=== PATIENT | female | born 1955 | race Caucasian/White ===

== ENCOUNTER 2016-09-03 14:24 | Emergency (ER) | payer OTHER ==
[~2016-09-03] VITALS: Ht 149.9 cm; Wt 72.6 kg
[2016-09-03 15:09] VITALS: BP 132/56
--- NOTE | 2016-09-03 16:35 | NUR ---
Patient ambulated to bed 3 with family. RN evaluating patient at bedside.
--- NOTE | 2016-09-03 16:40 | NUR ---
61F BIB FAMILY C/O LACERATION TO LEFT INDEX FINGER WHILE MOPPING X 1440 TODAY; NO BLEEDING NOTED TO SITE AT THIS TIME; PT C/O THROBBING PAIN TO LEFT INDEX FINGER, NON-RADIATING, 5/10 AT THIS TIME; LEFT CAP REFILL < 2 SECONDS, LEFT RADIAL PULSE PALPABLE, NO LOSS OF SENSATION TO LEFT HAND AT THIS TIME; PT A&OX4, PERRLA, BL LUNG SOUNDS CLEAR, RR EVEN/UNLABORED, SKIN IS WARM/DRY AT THIS TIME; PT DENIES N/V/D AT THIS TIME; STEADY GAIT; PT RESTING IN BED W/ HOB ELEVATED AND IN LOWEST POSITION; POSITIONED FOR COMFORT; ER MD MADE AWARE OF STATUS. WILL CONTINUE TO MONITOR.
--- NOTE | 2016-09-03 16:48 | NUR ---
Dr. Escudero evaluating patient at bedside.
--- NOTE | 2016-09-03 17:29 | NUR ---
Dr. Escudero at bedside for laceration repair.
[2016-09-03] MEDS ORDERED: LIDOCAINE 1% 500 MG/50 ML VIAL INJ SCH (17:30)
[2016-09-03] MEDS ORDERED: LIDOCAINE 1% ED 50 ML ONE (17:36)
[2016-09-03] MEDS ORDERED: NEOMYCIN/POLYMYXIN/BACITRACIN 0.9 GM/1 PKT TP ONE (18:17)
[2016-09-03 18:19] VITALS: BP 146/99
--- NOTE | 2016-09-03 18:19 | NUR ---
Patient discharged with v/s stable. Written and verbal after care instructions given and explained. Patient verbalized understanding. Ambulatory with steady gait. All questions addressed prior to discharge. Advised to follow up with PMD.
== END 2016-09-03 18:19 | disposition home or self-care (01) ==
LOC: MED 14:24
DX: S61.211A Laceration without foreign body of left index finger without damage to nail, initial encounter (principal); J45.909 Unspecified asthma, uncomplicated; E11.9 Type 2 diabetes mellitus without complications; E03.9 Hypothyroidism, unspecified; E78.5 Hyperlipidemia, unspecified; M06.9 Rheumatoid arthritis, unspecified; Z98.890 Other specified postprocedural states; X58.XXXA Exposure to other specified factors, initial encounter; Y93.E5 Activity, floor mopping and cleaning; Y92.89 Other specified places as the place of occurrence of the external cause; Y99.8 Other external cause status
CPT/HCPCS: 12001; 99283; J2001

== ENCOUNTER 2016-09-05 08:15 | Emergency (ER) | payer OTHER ==
[~2016-09-05] VITALS: Ht 149.9 cm; Wt 72.6 kg
[2016-09-05 08:39] VITALS: BP 140/58
--- NOTE | 2016-09-05 09:20 | NUR ---
Patient to OF.
--- NOTE | 2016-09-05 09:30 | NUR ---
Dr. Dye evaluating patient.
--- NOTE | 2016-09-05 09:35 | NUR ---
PATIENT PRESENTS TO ED WITH LEFT INDEX FINGER WOUND RECHECK; LAST SEEN SUNDAY HX; DM, ASTHMA, ARTHRITS, HYPOTHYROID, HYPERCHOLESTROLEMIA RX; INSULIN, JANUMET, LEVOTHYROXINE; DENIES N/V/D; SKIN IS PINK/WARM/DRY; AAOX4 WITH EVEN AND STEADY GAIT; LUNGS CLEAR BL; HR EVEN AND REGULAR; PT DENIES ANY FEVER, CP, SOB, OR COUGH AT THIS TIME; PATIENT STATES PAIN OF 5/10 AT THIS TIME; VSS; PATIENT POSITIONED FOR COMFORT; HOB ELEVATED; BEDRAILS UP X2; BED DOWN. ER MD MADE AWARE OF PT STATUS.
[2016-09-05] MEDS ORDERED: NEOMYCIN/POLYMYXIN/BACITRACIN 0.9 GM/1 PKT TP ONE (09:38)
--- NOTE | 2016-09-05 09:40 | NUR ---
NESPORIN OINTMENT APPLIED BY ROSEMARY GARCIA ON LEFT INDEX FINGER
[2016-09-05 09:59] VITALS: BP 132/75
== END 2016-09-05 09:59 | disposition home or self-care (01) ==
LOC: MED 08:15
DX: S61.211D Laceration without foreign body of left index finger without damage to nail, subsequent encounter (principal); X58.XXXD Exposure to other specified factors, subsequent encounter; Y92.89 Other specified places as the place of occurrence of the external cause; Y99.8 Other external cause status
CPT/HCPCS: 99283